=== PATIENT | female | born 1995 | race Caucasian/White ===

== ENCOUNTER 2016-09-13 08:47 | Emergency (ER) | payer OTHER ==
[~2016-09-13] VITALS: Ht 165.1 cm; Wt 59.0 kg
[~2016-09-13 08:47] MED LIST: LORA10TA68 PO
[2016-09-13 08:49] VITALS: BP 144/80; PULSE 89; RESP 18; TEMP 98.6; O2SAT 98
--- NOTE | 2016-09-13 08:53 | NUR ---
Ambulatory to bed 5
--- NOTE | 2016-09-13 09:00 | NUR ---
Dr. Weaver at bedside examining patient.
--- NOTE | 2016-09-13 09:01 | NUR ---
Patient AAOx4. Patient complains of nausea/vomitting, denies diarrhea. Patient states she might have "flu that is going around." Patient vomitted x3 this morning since 0200. Patient states having body aches for a week and only started vomitting this morning. Patient states she has headache pain at 6/10. No other complaints/injuries per patient or noted.
[2016-09-13] MEDS ORDERED: ONDANSETRON HCL 4 MG/2 ML VIAL IM ONE (09:30)
[2016-09-13] MEDS ORDERED: ACETAMINOPHEN 500 MG TABLET PO ONE (09:30)
--- NOTE | 2016-09-13 09:40 | NUR ---
Patient had emitus x2 and c/o headache pain 10/26. Medicated patient per MD order. Will continue to monitor.
[2016-09-13 10:05] VITALS: BP 133/81; PULSE 98; RESP 18; TEMP 98.9; O2SAT 95
--- NOTE | 2016-09-13 10:05 | NUR ---
Patient given written and verbal discharge instructions and verbalizes understanding. ER MD discussed with patient the results and treatment provided. Given copies of tests performed in ER. Patient in stable condition. ID arm band removed. Rx of odanestron and motrin given. Patient educated on pain management and to follow up with PMD. Pain Scale 0/10. Opportunity for questions provided and answered. Addendum: 09/13/16 at 1030 by [email or web address] No copies of tests given.
== END 2016-09-13 10:05 | disposition home or self-care (01) ==
LOC: SED 08:47
DX: R11.2 Nausea with vomiting, unspecified (principal); R03.0 Elevated blood-pressure reading, without diagnosis of hypertension
CPT/HCPCS: 81025; 96372; 99283; J2405